=== PATIENT | male | born 1985 | race African-American/Black ===

== ENCOUNTER 2020-12-20 14:26 | Emergency (ER) | payer SELFPAY | END 2020-12-20 14:54 | LOC: CSHERS 14:26 | DX: S31.030A Puncture wound without foreign body of lower back and pelvis without penetration into retroperitoneum, initial encounter (principal); S60.512A Abrasion of left hand, initial encounter; S80.211A Abrasion, right knee, initial encounter; S40.211A Abrasion of right shoulder, initial encounter | CPT/HCPCS: 99283 ==

== ENCOUNTER 2021-11-27 18:22 | Emergency (ER) | payer SELFPAY | END 2021-11-27 20:00 | disposition home or self-care (01) | LOC: CSHERS 18:22 | DX: U07.1 COVID-19 (principal); J06.9 Acute upper respiratory infection, unspecified; F17.210 Nicotine dependence, cigarettes, uncomplicated | CPT/HCPCS: 99283; U0003; U0005 ==